=== PATIENT | male | born 1975 | race Two or more races ===

== ENCOUNTER 2024-04-18 16:44 | Emergency (ER) | payer OTHER ==
[~2024-04-18] VITALS: Ht 170.2 cm; Wt 97.5 kg
[2024-04-18] MEDS ORDERED: GLUMETZA1000 MG PO (17:28)
[2024-04-18] MEDS ORDERED: GLIPIZIDE XL5 MG PO (17:28)
[2024-04-18] MEDS ORDERED: hydrOXYzine PAMOATE 50 MG CAPSULE PO ONE (19:45)
== END 2024-04-18 21:57 | disposition home or self-care (01) ==
LOC: ER 16:44
DX: F41.8 Other specified anxiety disorders (principal)